=== PATIENT | male | born 1990 | race Caucasian/White ===

== ENCOUNTER 2021-04-09 08:06 | Day surgery (SDC) | payer BC, SELFPAY ==
[~2021-04-09] VITALS: Ht 172.7 cm; Wt 65.8 kg
[2021-04-09] MEDS ORDERED: MIDAZOLAM HCL 5 MG/5 ML VIAL ONE (10:15)
[2021-04-09] MEDS ORDERED: DIPHENHYDRAMINE INJ 50 MG/ML VIAL ONE (10:15)
[2021-04-09] MEDS ORDERED: fentaNYL CITRATE/PF 100 MCG/2 ML AMP ONE (10:15)
[2021-04-09 15:49] VITALS: BP_SYST 127
== END 2021-04-09 11:20 | disposition home or self-care (01) ==
LOC: SDS 08:06 → SMU 08:07 → EDSTATUS 10:00 → SDS 11:20
PROVIDERS: ATTEND Internal Medicine
DX: R10.13 Epigastric pain (principal); Z20.822 Contact with and (suspected) exposure to COVID-19; Z79.899 Other long term (current) drug therapy
CPT/HCPCS: 36415; 43239; 87081; 88305; 88312; 88313; G0378; J1200; J2250; J3010; U0003